=== PATIENT | female | born 1990 | race Caucasian/White ===

== ENCOUNTER 2018-07-21 14:16 | Outpatient (REF) | payer OTHER, SELFPAY ==
--- NOTE | 2018-07-21 13:30 | PAPFT_PTH ---
PATIENT: Catrina Flaherty LOC: [facility] U#:[id number] AGE/SX: 27/F ROOM: RE07/21/[address]: SAMMIE Caldwell : 1990 BED: DIS: 07/21/2018 SPEC #: [id number] RECD: 07/21/18 18:07 STATUS: SUKHDEV REEmmanuelle #: [id number] NATE: 07/21/18 13:[address]: Virginia Hylton DEPT: [facility]LY [facility] Cytology RECD BY: Sparkle Trevizo ENTERED: 07/21/18 18:07 SP TYPE: PAPFT OTHR DR: Genet Sorensen Tissues: 1 - CX/ENDOCX FOR PAP SMEARS Procedures: PAP THIN PREP/UVM Screening Comments: [id number]
== END 2018-07-21 14:36 ==
LOC: LBN 14:16
PROVIDERS: PCP Nurse Practitioner Family; Visit Provider Nurse Practitioner Family
DX: Z12.4 Encounter for screening for malignant neoplasm of cervix (principal)
CPT/HCPCS: 88142

== ENCOUNTER 2018-10-28 11:56 | Outpatient (CLI) | payer OTHER, SELFPAY ==
[2018-10-28 12:28] LABS: Abs Immature Grans 0.01 k/cumm (0.0-0.09); Absolute Basophil Count 0.04 k/cumm (0.0-0.2); Absolute Eosinophil Count 0.25 k/cumm (0.0-0.7); Absolute Lymphocyte Count 2.99 k/cumm (1.2-3.4); Absolute Monocyte Count 1.11 k/cumm (0.11-0.7); Absolute Neutrophil Count 7.39 k/cumm (1.2-6.7); Basophils % 0.3; Eosinophils % 2.1; HCT 39.7 % (36.0-46.0); HGB 13.7 g/dL (12.0-15.5); Immature Grans % 0.1; Lymphocytes % 25.4; Mean Corp. HGB Concentration 34.5 g/dL (32.0-36.0); Mean Corpuscular Hemoglobin 31.6 pg (27.0-33.0); Mean Corpuscular Volume 91.7 fL (80-95); Mean Platelet Volume 9.7 fL (8.0-11.0); Monocytes % 9.4; Neutrophils % 62.7; Platelet Count 326 x1000/uL (130-400); RBC 4.33 m/cumm (4.00-5.20); RBC Distribution Width 12.2 % (11.7-14.6); White Blood Cell Count 11.79 k/cumm (4.4-10.8)
[2018-10-29 11:11] LABS: Rubella IgG Ab (UVM) Positive; Varicella IgG Antibody Positive
[2018-10-29 11:14] LABS: Syphilis Serology (RPR) Negative (Negative)
[2018-10-29 11:19] LABS: Hepatitis B Surface Ag Negative (NEGAT); Hepatitis C Ab w Rflx HCV PCR Negative (NEGAT)
[2018-10-29 11:30] LABS: HIV-1/2 Ag & Ab Screen Negative (NEGAT)
== END 2018-10-28 12:16 ==
PROVIDERS: PCP Nurse Practitioner Family; Visit Provider Advanced Practice Midwife
DX: Z34.91 Encounter for supervision of normal pregnancy, unspecified, first trimester (principal); Z01.84 Encounter for antibody response examination; Z11.4 Encounter for screening for human immunodeficiency virus [HIV]; Z11.59 Encounter for screening for other viral diseases
CPT/HCPCS: 36415; 80055; 86787; 86803; 86850; 86900; 86901; 87340; 87389; 86592; 86762

== ENCOUNTER 2018-10-28 14:26 | Outpatient (REF) | payer OTHER, SELFPAY ==
[2018-10-28 15:12] LABS: *AMPHETAMINES SCREEN URINE Negative (Negative); *BARBITURATES SCREEN URINE Negative (Negative); *BENZODIAZEPINES SCREEN URINE Negative (Negative); Cannabinoids THC Negative (Negative); Cocaine Screen,Urine Negative (Negative); METHADONE URINE SCREEN Negative (Negative); OPIATES URINE SCREEN Negative (Negative)
[2018-10-28 15:13] LABS: Tricyclic Antidepressants Negative (Negative)
[2018-11-01 07:09] LABS: Buprenorphine Negative; Norbuprenorphine Negative
== END 2018-10-28 14:46 ==
LOC: LBN 14:26
PROVIDERS: PCP Nurse Practitioner Family; Visit Provider Advanced Practice Midwife
DX: Z34.91 Encounter for supervision of normal pregnancy, unspecified, first trimester (principal)
CPT/HCPCS: 80307; 87086

== ENCOUNTER 2018-11-25 12:55 | Outpatient (REF) | payer OTHER, SELFPAY ==
[2018-11-26 14:32] LABS: Chlamydia Result Negative; GC Result Negative; Specimen Description URINE
== END 2018-11-25 13:15 ==
LOC: LBN 12:55
PROVIDERS: PCP Nurse Practitioner Family; Visit Provider Advanced Practice Midwife
DX: Z34.91 Encounter for supervision of normal pregnancy, unspecified, first trimester (principal); Z11.3 Encounter for screening for infections with a predominantly sexual mode of transmission
CPT/HCPCS: 87491; 87591

== ENCOUNTER 2018-12-22 01:23 | Outpatient (CLI) | payer OTHER, SELFPAY ==
--- NOTE | 2018-12-22 08:37 | DI.US_ITS ---
SYMPTOMS/DIAGNOSIS: SURVEY, Z34.90, ROUTINE CARE OB ULTRASOUND: Routine examination was performed. There is a single living intrauterine gestation. Estimated sonographic age is 18 weeks 3 days. No or placental abnormalities were identified. The heart rate is 149 bpm. The fetus was in the cephalic presentation. The amniotic fluid is within normal limits visually. The placenta is posterior without evidence of previa. IMPRESSION: Single living intrauterine gestation. Estimated sonographic age is 18 weeks 3 days. Many abnormalities cannot be diagnosed. A normal exam does not exclude a congenital anomaly. Radiology No. [id number] LMP: Exam Date: 12/22/18 [facility] wks days on EDC ([facility]) 05/25/19 Confirmed: HISTORY: survey PREDICTED GESTATIONAL AGE NUMBER 18 weeks with a range of 17 weekS to 19 weeks. 1 Determined by 1STUS X LMP___HISTORY Info. pertaining to fetus # PLACENTA PRESENTATION Grade I Cephalic X Anterior___Posterior X Breech____ Right Left Transverse(head right___ Fundal___Low-lying___Previa___ Transverse(head left___ Varying BIOMETRY AMNIOTIC FLUID BPD: 41 mm 18+3 weeks Normal HC: 152 mm 18+1 weeks AC: 128 mm 18+2 weeks FL: 28 mm 18+4 weeks AMNIOTIC FLUID INDEX >26 WK CRL: mm weeks Cisterna Magna: 2.4 mm CI: 82.6 RUQ: LUQ Cerebellum: 1.83 cm EFW: 239 grams Percentile 71% RLQ: LLQ Total: cms Composite AGE= 18+3 wks EDC by US 05/22/19 BIOPHYSICAL PROFILE ANATOMY IDENTIFIED SCORE 0/2 Heart: 4-Chamber X Rate: 149 BPM LVOT: X RVOT: X Amniotic Fluid(>2cms)____ Stomach: X Kidneys: X Respirations (>30 secs) Bladder: X Post. Fossa: X Body Flex/Extension 3 vessel cord: X Ventricles: X cord insertion: X Lips: X Extremity Flex/Extension spinal morphology: XNose: X Total Score= Palate: X NS=not seen
== END 2018-12-22 01:43 ==
PROVIDERS: PCP Nurse Practitioner Family; Visit Provider Advanced Practice Midwife
DX: Z34.92 Encounter for supervision of normal pregnancy, unspecified, second trimester (principal)
CPT/HCPCS: 76805

== ENCOUNTER 2019-03-02 01:07 | Outpatient (CLI) | payer OTHER, SELFPAY ==
[2019-03-02 11:22] LABS: Glucose,1 Hr (Glucola) 134 mg/dL (80-140)
[2019-03-02 11:27] LABS: HCT 36.2 % (36.0-46.0); HGB 12.1 g/dL (12.0-15.5); Mean Corp. HGB Concentration 33.4 g/dL (32.0-36.0); Mean Corpuscular Hemoglobin 31.1 pg (27.0-33.0); Mean Corpuscular Volume 93.1 fL (80-95); Mean Platelet Volume 10.3 fL (8.0-11.0); Platelet Count 289 x1000/uL (130-400); RBC 3.89 m/cumm (4.00-5.20); White Blood Cell Count 11.34 k/cumm (4.4-10.8)
== END 2019-03-02 01:27 ==
PROVIDERS: PCP Nurse Practitioner Family; Visit Provider Advanced Practice Midwife
DX: Z34.93 Encounter for supervision of normal pregnancy, unspecified, third trimester (principal)
CPT/HCPCS: 36415; 82950; 85027

== ENCOUNTER 2019-04-27 11:39 | Outpatient (REF) | payer OTHER, SELFPAY ==
[2019-04-27 13:12] LABS: *AMPHETAMINES SCREEN URINE Negative (Negative); *BARBITURATES SCREEN URINE Negative (Negative); *BENZODIAZEPINES SCREEN URINE Negative (Negative); Cannabinoids THC Negative (Negative); Cocaine Screen,Urine Negative (Negative); METHADONE URINE SCREEN Negative (Negative); OPIATES URINE SCREEN Negative (Negative)
[2019-04-27 13:16] LABS: Tricyclic Antidepressants Negative (Negative)
== END 2019-04-27 11:59 ==
LOC: LBN 11:39
PROVIDERS: PCP Nurse Practitioner Family; Visit Provider Advanced Practice Midwife
DX: Z34.93 Encounter for supervision of normal pregnancy, unspecified, third trimester (principal); Z36.85 Encounter for antenatal screening for Streptococcus B
CPT/HCPCS: 80307; 87081

== ENCOUNTER 2019-05-09 11:45 | Outpatient (CLI) | payer OTHER, SELFPAY | END 2019-05-09 12:05 | PROVIDERS: PCP Nurse Practitioner Family; Visit Provider Advanced Practice Midwife | DX: O46.93 Antepartum hemorrhage, unspecified, third trimester (principal); Z3A.39 39 weeks gestation of pregnancy | CPT/HCPCS: 59025 ==

== ENCOUNTER 2019-05-18 10:48 | Outpatient (CLI) | payer OTHER, SELFPAY ==
[2019-05-18 11:45] LABS: HCT 34.6 % (36.0-46.0); HGB 11.5 g/dL (12.0-15.5); Mean Corp. HGB Concentration 33.2 g/dL (32.0-36.0); Mean Corpuscular Hemoglobin 29.9 pg (27.0-33.0); Mean Corpuscular Volume 90.1 fL (80-95); Mean Platelet Volume 10.4 fL (8.0-11.0); Platelet Count 278 x1000/uL (130-400); RBC 3.84 m/cumm (4.00-5.20); RBC Distribution Width 13.5 % (11.7-14.6); White Blood Cell Count 12.77 k/cumm (4.4-10.8)
== END 2019-05-18 11:08 ==
PROVIDERS: PCP Nurse Practitioner Family; Visit Provider Obstetrics & Gynecology
DX: O34.211 Maternal care for low transverse scar from previous cesarean delivery (principal); Z98.891 History of uterine scar from previous surgery; Z01.812 Encounter for preprocedural laboratory examination; Z01.818 Encounter for other preprocedural examination
CPT/HCPCS: 36415; 85027; 86850; 86900; 86901

== ENCOUNTER 2019-05-19 06:03 | Inpatient (IN) | payer OTHER, SELFPAY ==
--- NOTE | 2019-05-14 09:47 | HPE_ITS ---
Date of service: 05/19/19 Time of Service: 06:25 Assessment and Plan (1) Previous section: Current visit: No Status: Chronic (2) : Current visit: No Status: Acute Plan RCS/PPTL R/B/A have been discussed all questions asked and answered discussed risk regret,failure, and/or ectopic she states an understanding of these risk consents signed History of Present Illness Chief Complaint: RCS/PPTL Narrative: 28 yo 39 weeks presents for RCS/PPTL Review of Systems Review of Systems All systems reviewed & are unremarkable except as noted in HPI and below PFSH Medical History Anxiety (Acute) Personal history of cervical dysplasia (Chronic 05/28/13) Positive test (Acute) Tobacco use (Resolved 06/25/17) Surgical History section (11/29/15) Previous section (Chronic) Social History Smoking/Tobacco Use Status: Former Tobacco Use Alcohol Intake: former Details: Rarely Drug use: Never Substance use type: former substance user Seatbelt use: always Do you feel safe in your relationship?: Yes History History 3 Para 1 Hx # Term Pregnancies 1 Multiple births 0 Hx # Pregnancies 0 Ectopic pregnancies 0 AB induced 1 Hx Number of Living Children 1 AB spontaneous 0 Past Pregnancies Del. Date GA/Weeks # Outcome Route Wgt Sex Labor Lgth Anesthes ia Location [facility] 11/30/15 41 No Successful 4.082 kg Female 22 hrs regional [facility] Delivery Date: 11/30/15 On 10/28/18 @ 11:02 Annette Rushing long labor, OP position, pushed for over 2 hours Meds Home Medications Medication Instructions Recorded Confirmed Type Benedryl PRN 05/28/13 05/14/19 History Zyrtec 08/18/15 05/14/19 History acetaminophen [Tylenol Extra 1,000 mg PO PRN PRN 07/25/17 05/14/19 History Strength] prenat.vits,vanessa,mow-hnuj-bxbcf 1 tab PO DAILY 10/16/18 05/14/19 History magnesium 200 mg tablet 200 mg PO DAILY 12/22/18 05/14/19 History riboflavin (vitamin B2) 100 mg 100 mg PO DAILY 12/22/18 05/14/19 History tablet kgbcijgdlu-txhxwpwfcxngi-mtvitxvr 1 cap PO .COMPLEX PRN #20 cap 01/19/19 05/14/19 Rx 50 mg-300 mg-40 mg capsule Allergies Allergy/AdvReac Type Severity Reaction Status Date / Time ibuprofen Allergy Severe Verified 05/14/19 09:10 codeine [Codeine] Allergy Intermediate RASH Verified 05/14/19 09:10 guaifenesin [From Robitussin] Allergy Intermediate RASH Verified 05/14/19 09:10 animal dander Allergy Verified 05/14/19 09:10 house dust mite Allergy Verified 05/14/19 09:10 Anesthesia Allergy Severe Swelling/Ed Uncoded 05/14/19 09:10 marcos Exam Narrative Exam Narrative: pleasant cooperative Resp Effort & Inspection: normal respiratory effort Auscultation: clear to auscultation bilaterally Cardio Rate: regular rate Rhythm: regular rhythm Heart Sounds: S1 normal and S2 normal General: other (gravid uterus non tender EFW 9#)
[2019-05-19 06:25] VITALS: BP 117/74; PULSE 83; RESP 18; TEMP 36.6; O2SAT 97
[2019-05-19 06:26] VITALS: BP 117/74; PULSE 83; RESP 18; TEMP 36.6; O2SAT 97
[2019-05-19] MEDS: Lactated Ringers 1,000 ML 125 ML IV ×3 (06:44→20:05)
[2019-05-19] MEDS: ceFAZolin 2 GM/50 ML BAG IVPB (07:45)
--- NOTE | 2019-05-19 08:18 | FALL_PTH ---
PATIENT: Catrina Flaherty LOC: [facility] U#:[id number] AGE/SX: 28/F ROOM: OBS.305 RE05/19/[address]: Shirley Vela MD : 1990 BED: A DIS: 05/22/2019 SPEC #: [id number] RECD: 05/19/19 12:57 STATUS: SUKHDEV REEmmanuelle #: [id number] NATE: 05/19/19 08:[address]: Shirley Vela DEPT: Surgical Specimen RECD BY: Sparkle Trevizo ENTERED: 05/19/19 12:58 SP TYPE: Fall OTHR DR: Genet Sorensen Tissues: 1 - FALLOPIAN TUBE (STERILIZATION) 2 - FALLOPIAN TUBE (STERILIZATION) Procedures: GROSS AND MICRO LEVEL 2 Comments: [id number]
[2019-05-19] MEDS: Bupivacaine LIPOSOME/PF 133 MG/10 ML VIAL IJ (08:30)
[2019-05-19] MEDS: Ondansetron 4 MG/2 ML VIAL 8 MG IVP (09:44)
[2019-05-19] MEDS: HYDROmorphone 2 MG/ML VIAL 1 MG IVP ×2 (09:46→11:12)
--- NOTE | 2019-05-19 11:24 | ROE_ITS ---
REPORT OF OPERATIVE PROCEDURE DATE OF PROCEDURE May 19, 2019 PREOPERATIVE DIAGNOSES Request repeat section, desires permanent sterilization. POSTOPERATIVE DIAGNOSES Request repeat section, desires permanent sterilization. PROCEDURE Repeat caesarean section via low transverse incision, bilateral tubal ligation. SURGEON Shirley Vela M.D. TRANSMISSION SPECIALIST Tigre Milan M.D. ANESTHESIA Spinal. COMPLICATIONS None. ESTIMATED BLOOD LOSS 800 cc FLUIDS 1000 cc LR SPECIMENS Bilateral segments of fallopian tube. FINDINGS Viable female infant, 8 pounds 11 ounces with Apgars 8 and 9. Normal uterus, ovaries, bilaterally ligated tubes at the end of the procedure. PROCEDURE DESCRIPTION The patient was taken to the Operating Room, where she was properly identified. She was then given sp inal anesthesia without difficulty. She was then placed in a dorsally supine position on the Operatin g Table with a left lateral tilt. She was then prepped and draped in a normal sterile fashion after p lacement of the Millan catheter and SCDs boots were on. A formal timeout procedure was then performed confirming the patient, procedure and desire for bilateral tubal ligation. After establishing adequate spinal anesthesia, a Pfannenstiel incision was made approximately 2 cm ab ove the symphysis pubis, along the old Pfannenstiel scar. This was carried down to the underlying fas kristina. The fascia was nicked in the midline and then extended sharply bilaterally with the Watkins scissor s. The inferior fascia was then grasped bilaterally with the Chacho clamps, tented up and the rectus muscle was dissected off sharply. Attention was then turned to the superior aspect, and again, in a s imilar fashion was grasped bilaterally with the Chacho clamps, tented up and the rectus muscle was di ssected off sharply. The rectus muscle was in the midline. The peritoneum was entered. This was extended superiorly, then inferiorly with good visualization of the bladder. The bladder blade w as then positioned. The vesicouterine peritoneum was grasped with a Pick-Up, tented up and entered s harply. The bladder flap was created both sharply and digitally. The bladder blade was re-positioned. The lower uterine segment was transversely incised to the underlying uterine cavity. The uterine in cision was extended manually. The membranes were ruptured for clear fluid and the 's head was d elivered atraumatically without nuchal cord. Shoulder and body followed with ease. The cord was clamp ed x2, cut and the was handed off to the waiting Marketing Copywriter. The uterus exteriorized and cleared of all clots and debris. The uterus was closed with #0-Vicryl in a running locked fashion, and a second imbricating layer was used to achieve hemostasis. The uterus w as returned to the abdomen and the uterus was rotated to visualize the right fallopian tube, which wa s grasped circumferentially with the Hancock clamp. Tied x2 and the interval segment excised. Hemosta sis was confirmed. Attention was turned to the opposite fallopian tube and again, in a similar fashion, it was grasped c ircumferentially with the Hancock clamp, tied x2 and the interval segment excised. Hemostasis again w as confirmed. The incision was re-inspected and found to be hemostatic. The peritoneum was closed with #2-0 Vicryl in a running fashion. The muscle and subfascial layer were inspected and found to be hemostatic. The fascia was closed with a running single suture of #0-Vicry l. The subcuticular layer was irrigated. The subcuticular layer was closed with #3-0 Plain, and the s kin was closed with #4-0 Vicryl on a Chele needle in a subcuticular fashion. Sponge, lap, needle and instrument counts were correct x2. The patient was taken to the Recovery Room in stable condition. [facility]
[2019-05-19] MEDS: HYDROmorphone 2 MG TAB PO ×4 (12:29→22:00)
[2019-05-19] MEDS: ACETAMINOPHEN 1,000 MG/100 ML BTL 400 MG IVPB ×2 (14:55→20:04)
[2019-05-20] MEDS: HYDROmorphone 2 MG TAB PO ×10 (00:54→22:22)
[2019-05-20] MEDS: Lactated Ringers 1,000 ML 120 ML IV (03:19)
[2019-05-20 07:24] LABS: HCT 33.6 % (36.0-46.0); Mean Corp. HGB Concentration 32.7 g/dL (32.0-36.0); Mean Corpuscular Hemoglobin 29.5 pg (27.0-33.0); Mean Corpuscular Volume 90.1 fL (80-95); Mean Platelet Volume 10.4 fL (8.0-11.0); Platelet Count 237 x1000/uL (130-400); RBC 3.73 m/cumm (4.00-5.20); RBC Distribution Width 13.7 % (11.7-14.6); White Blood Cell Count 15.05 k/cumm (4.4-10.8)
[2019-05-20] MEDS: Docusate Sodium 100 MG CAP PO ×2 (09:20→16:16)
[2019-05-20] MEDS: ACETAMINOPHEN 1,000 MG/100 ML BTL 400 MG IVPB (09:21)
[2019-05-20] MEDS: Normal Saline Flush 10 ML SYR IVP (09:22)
[2019-05-20] MEDS: Acetaminophen 325 MG TAB 650 MG PO (19:13)
[2019-05-21] MEDS: HYDROmorphone 2 MG TAB PO ×7 (00:30→21:34)
[2019-05-21] MEDS: Docusate Sodium 100 MG CAP PO ×2 (08:25→22:15)
[2019-05-21] MEDS: Acetaminophen 325 MG TAB 650 MG PO ×4 (08:25→23:25)
[2019-05-21] MEDS: Milk of Magnesia 30 ML CUP PO (14:49)
[2019-05-22] MEDS: HYDROmorphone 2 MG TAB PO ×3 (01:49→11:21)
[2019-05-22] MEDS: Acetaminophen 325 MG TAB 650 MG PO ×2 (04:46→11:25)
[2019-05-22] MEDS: Docusate Sodium 100 MG CAP PO (07:58)
--- NOTE | 2019-05-22 07:58 | W.PM.PROGNOT ---
Date of Service Date of service: 05/22/19 Time of Service: 07:58 Assessment and Plan (1) S/P section: Current visit: Yes Status: Acute POD 3 s/p RLTCS and BTL. Making satisfactory postoperative progress. Plan for discharge home today. Subjective Interval history since last seen: Doing well. Pain well controlled. Ambulatory. Tolerating regular diet. No nausea or vomiting. Minimal lochia. Exam GI Other: Incision is appropriately tender. C/D/I Objective Objective Clinical Data: Vital Signs Temperature 97.9 F 05/19/19 06:26 Pulse 83 05/19/19 06:26 Pulse Rhythm Regular 05/19/19 06:26 Respiratory Rate 18 05/19/19 06:26 Blood Pressure 117/74 05/19/19 06:26 Pulse Oximetry 97 05/19/19 06:26 Oxygen Delivery Method Room Air 05/19/19 06:26 Oxygen Flow Rate 0 05/19/19 06:26 Pain Level 5 05/22/19 04:46 Comment 05/19/19 06:26 Laboratory Results WBC 15.05 k/cumm (4.4-10.8) H 05/20/19 07:05 RBC 3.73 m/cumm (4.00-5.20) L 05/20/19 07:05 Hgb 11.0 g/dL (12.0-15.5) L 05/20/19 07:05 Hct 33.6 % (36.0-46.0) L 05/20/19 07:05 MCV 90.1 fL (80-95) 05/20/19 07:05 MCH 29.5 pg (27.0-33.0) 05/20/19 07:05 MCHC 32.7 g/dL (32.0-36.0) 05/20/19 07:05 RDW 13.7 % (11.7-14.6) 05/20/19 07:05 Plt Count 237 x1000/uL (130-400) 05/20/19 07:05 MPV 10.4 fL (8.0-11.0) 05/20/19 07:05
--- NOTE | 2019-05-22 08:03 | W.PM.DSUDISC ---
Discharge Plan Disposition Patient Disposition: HOME Condition: Good Discharge Details Admit Date/Time: 05/19/19 06:03 Admit Provider: Shirley Vela Attending Provider: Shirley Vela Primary Care Provider: Genet Sorensen Hospital Course Hospital Course: The patient was admitted for repeat section and BTL which was performed on HD 1. Postoperatively the patient did well. She met all postoperative milestones and was felt suitable for discharge on POD 3 Home Meds and New Rx's Prescriptions: New hydromorphone 2 mg Tablet 2 mg PO Q6H PRN PRNQty: 10 RF: 0 Continued prenat.vits,vanessa,nre-rlwj-lhldc tablet 1 tab PO DAILY RF: 0 toajxbyebj-bqftfxtfvlcjj-trmp [Fioricet] 50-300-40 mg capsule 1 cap PO .COMPLEX PRN (Reason: pain) Qty: 20 RF: 0 magnesium 200 mg tablet 200 mg PO DAILY RF: 0 riboflavin (vitamin B2) 100 mg tablet 100 mg PO DAILY RF: 0 benedryl 2 tab PO PRN RF: 0 zyrtec RF: 0 acetaminophen [Tylenol Extra Strength] 500 MG tablet 1,000 mg PO PRN PRNRF: 0 Discharge Instructions Activity:: Activity as Tolerated Equipment/Supplies:: No Equipment Needed Diet:: As Tolerated Discharge Orders Discharge Orders: Discharge Order (Routine); Ordered 05/22/19 Ordered By: Tigre Milan DS: Diagnosis Discharge Diagnosis (1) S/P section: Status: Acute
== END 2019-05-22 12:50 | disposition home or self-care (01) | DRG 784 ==
LOC: PDS 06:04 → OBS 10:51 → PDS 11:05 → OBS 11:05
PROVIDERS: Admitting Provider Obstetrics & Gynecology; PCP Nurse Practitioner Family; Visit Provider Obstetrics & Gynecology
PROC: 10D00Z1 Extraction of Products of Conception, Low, Open Approach (ICD-10-PCS; CPT 59514; principal; 2019-05-19 07:30)
PROC: 10D00Z1 Extraction of Products of Conception, Low, Open Approach (ICD-10-PCS; CPT 58605; 2019-05-19 07:30)
DX: O34.211 Maternal care for low transverse scar from previous cesarean delivery (principal); O99.43 Diseases of the circulatory system complicating the puerperium; Z37.0 Single live birth; Z3A.39 39 weeks gestation of pregnancy; Z88.8 Allergy status to other drugs, medicaments and biological substances; Z30.2 Encounter for sterilization; R00.0 Tachycardia, unspecified
CPT/HCPCS: 59514; 58611; 36415; 85027; 99233; NC; 88302; J0131; J0690; J2370; J2405; J3010

== ENCOUNTER 2019-06-10 20:26 | Observation (INO) | payer OTHER, MEDICAID, SELFPAY ==
[2019-06-10] VITALS (21 sets, daily range): BP systolic 101–113; BP diastolic 63–76; PULSE 80–99; RESP 11–24; TEMP 37–37.4; O2SAT 96–98
--- NOTE | 2019-06-10 20:36 | ED.GENADUL_ITS ---
Discharge Plan Disposition Patient Disposition: [facility] INPATIENT Condition: Good Discharge Details Chief Complaint: Headache Clinical Impression: Eye pain, Headache, Hand tingling Admit Date/Time: 06/10/19 22:23 Admit Provider: Tigre Milan Attending Provider: Tigre Milan Primary Care Provider: Genet Sorensen ED Provider: Quinn Rosenthal Medical Decision Making Patient is 20 days presenting with painful eye movement as opposed to true headache. This does not appear to be a spinal headache. Does not appear to be eclampsia. Her blood pressure is normal. She has no right upper quadrant pain, nausea or vomiting. She has left hand tingling but otherwise has a nonfocal neurologic exam. Her funduscopic exam appears normal to me. Her visual acuity is normal. This is not anything like her typical migraines. She does have a history of sinus disease but does not think she had any change in the symptoms. She is not really describing headache per se. Elected to place an IV and check laboratory studies though I do not think this is eclampsia. I will obtain imaging of her head and sinuses. This does not strike me as intracranial hemorrhage. This seems to be more related to a possible eye issue. Optic neuritis should be unilateral and should have visual change which she is not describing but it certainly does cause eye pain. She does not have extraocular muscle weakness. Potentially some eye muscle inflamma tion could be causing this. Laboratory studies are unremarkable. Urine is negative. Liver function normal. Platelets normal. Vital signs remain normal. CT scan is normal per preliminary radiology read. At this point still have to consider other causes of eye movement pain. She is recently and she has other neurologic complaints though it is only paresthesias in the left hand. She probably will benefit from MRI of the brain and orbits to rule out significant pathology such as multiple sclerosis, neuritis, eye muscle myopathy. I doubt this is arteritis but have added a sed rate. I have discussed the case with Dr. Milan from OB. She had called him prior to coming in. We will admit to observation status to labor and delivery so that she may keep her baby and continue breast-feeding. Plan MRI in the morning emergently and obtain neurology consult with Dr. Rodgers. Patient is agreeable with plan. Medical Records Medical records reviewed: Yes I reviewed the patient's medical records. Lab Data Lab results reviewed: Yes I reviewed the patient's lab results. HPI General Mode of arrival: ambulatory . Date/Time Provider Initiated Documentation: 06/10/19 20:35 . Limitations to Documentation: no limitations . Information obtained by: patient, RN notes reviewed and old records reviewed . HPI Narrative: Patient presents with 3 days of severe eye pain with eye movement. This has been more or less constant. She has noticed some cloudiness to her vision but no actual change in vision. She does not describe photosensitivity. She does not really describe headache. If she is looking straight ahead and not moving her eyes her pain is significantly better. As soon as she begins moving her eyes around especially upward she develops severe pain. She does have a history of migraines. This is nothing like her previous typical migraine headaches. She has noticed intermittent tingling in the left hand involving the palmar aspect and into the fingers. She has not noticed any other neurologic symptoms. She has no nausea, vomiting or abdominal pain. She is 20 days from a . She did have a spinal for this. She does not notice change in pain or headache with recumbent versus standing. Related Data Home Medications Medication Instructions Recorded Confirmed acetaminophen [Tylenol Extra 1,000 mg PO PRN PRN 07/25/17 06/10/19 Strength] prenat.vits,vanessa,grz-cfnu-siixz 1 tab PO DAILY 10/16/18 06/10/19 magnesium 200 mg tablet 200 mg PO DAILY 12/22/18 06/10/19 riboflavin (vitamin B2) 100 mg 100 mg PO DAILY 12/22/18 06/10/19 tablet wwzspasooq-udaddzigntzbv-esopwaso 1 cap PO .COMPLEX PRN #20 cap 01/19/19 06/10/19 50 mg-300 mg-40 mg capsule hydromorphone 2 mg PO Q6H PRN PRN #10 tab 05/22/19 06/10/19 cetirizine [Zyrtec] 10 mg PO DAILY 06/10/19 06/10/19 Previous Rx's Medication Instructions Recorded yvmpgjnnbm-fshyhfyxgyqol-fvmpgtvd 1 cap PO .COMPLEX PRN #20 cap 01/19/19 50 mg-300 mg-40 mg capsule hydromorphone 2 mg PO Q6H PRN PRN #10 tab 05/22/19 Allergies Allergy/AdvReac Type Severity Reaction Status Date / Time NSAIDS (Non-Steroidal Allergy Severe anyphylaxis Verified 06/10/19 23:00 Anti-Inflamma codeine [Codeine] Allergy Intermediate RASH Verified 06/10/19 20:38 guaifenesin [From Robitussin] Allergy Intermediate RASH Verified 06/10/19 20:38 animal dander Allergy Verified 06/10/19 20:38 house dust mite Allergy Verified 06/10/19 20:38 Anesthesia Allergy Severe Swelling/Ed Uncoded 06/10/19 20:38 marcos Review of Systems Review of Systems 07/26 Review of Systems completed and is negative except as stated above in HPI (Systems reviewed: Const, Eyes, ENT, Resp, CV, GI, , MSK, Skin, Neuro) PFSH Medical History Anxiety (Chronic) Pt reports intense anxiety at times focused around her daughter's safety and well-being and becomes more intense when she is from her daughter. At times, symptoms of panic. Migraine (Chronic) Personal history of cervical dysplasia (Chronic 05/28/13) Surgical History section (11/29/15) PCD for arrest of dilation. Shankar Chambers 9lb. ROSALINDA/FABIAN. Social History Smoking/Tobacco Use Status: Former Tobacco Use Alcohol Intake: former Details: Rarely Drug use: Never Substance use type: former substance user Seatbelt use: always Do you feel safe in your relationship?: Yes History History 3 Para 2 Hx # Term Pregnancies 2 Multiple births 0 Hx # Pregnancies 0 Ectopic pregnancies 0 AB induced 1 Hx Number of Living Children 2 AB spontaneous 0 Past Pregnancies Del. Date GA/Weeks # Outcome Route Wgt Sex Labor Lgth Anesthes ia Location Prov Complic 11/30/15 41 No Successful 4.082 kg Female 22 hrs regional [facility] Delivery Date: 11/30/15 On 10/28/18 @ 11:02 Annette Rushing long labor, OP position, pushed for over 2 hours Exam Narrative Exam Narrative: Vitals: Afebrile with normal vital signs and normal blood pressure. Const: WDWN female in NAD. HEENT: NC/AT. Normal facial exam. No sinus tenderness. Eyes: Normal conjunctiva and sclera. PERRLA and EOMI but severe pain with EOMI. Visual guzman in tact to confrontation. VA 20/20 left and right. Funduscopic exam is normal with sharp disc bilaterally. Neck: Supple. Trachea midline. No meningeal signs. Lungs: Normal respiratory effort. Lungs are clear. Cor: RRR without murmur/gallop. GI: Soft. NT/ND. No guarding or rebound. Neuro: A+O x 3. CN II - XII grossly in tact. Normal mentation, speech, gait, strength, sensation, cerebellar testing. Subjective tingling in the palmar aspect of the left hand. Ext: No C/C/E. No deformity or tenderness. Skin: Warm and dry without rash.
[2019-06-10 21:16] LABS: Abs Immature Grans 0.01 k/cumm (0.0-0.09); Absolute Basophil Count 0.02 k/cumm (0.0-0.2); Absolute Eosinophil Count 0.11 k/cumm (0.0-0.7); Absolute Lymphocyte Count 1.58 k/cumm (1.2-3.4); Absolute Monocyte Count 1.17 k/cumm (0.11-0.7); Absolute Neutrophil Count 4.31 k/cumm (1.2-6.7); Basophils % 0.3; Eosinophils % 1.5; HGB 13.2 g/dL (12.0-15.5); Immature Grans % 0.1; Lymphocytes % 21.9; Mean Corpuscular Hemoglobin 29.8 pg (27.0-33.0); Mean Corpuscular Volume 90.3 fL (80-95); Mean Platelet Volume 10.3 fL (8.0-11.0); Monocytes % 16.3; Neutrophils % 59.9; Platelet Count 291 x1000/uL (130-400); RBC 4.43 m/cumm (4.00-5.20); RBC Distribution Width 13.8 % (11.7-14.6)
[2019-06-10 21:30] LABS: ALT 28 U/L (14-59); AST 14 U/L (15-37); Albumin 3.5 g/dL (3.4-5.0); Alkaline Phosphatase 95 U/L (46-116); Anion Gap 14.1 mmol/L (3-11); BUN 7 mg/dL (7-18); Bilirubin, Total 0.2 mg/dL (0.2-1.0); CO2 21.9 mmol/L (21.0-32.0); CREATININE 0.83 mg/dL (0.55-1.02); Calcium 8.5 mg/dL (8.5-10.1); Chloride 104 mmol/L (98-107); Glucose 115 mg/dL (70-100); Sodium 140 mmol/L (136-145); Total Protein 7.3 g/dL (6.4-8.2)
[2019-06-10 21:32] LABS: Potassium 2.9 mmol/L (3.5-5.1)
--- NOTE | 2019-06-10 21:32 | DI.CT_ITS ---
SYMPTOM/DIAGNOSIS: FRONTAL HEADACHE NONCONTRAST HEAD CT: There are no prior comparison exams. No intracranial hemorrhage, mass or infarct is seen. The ventricles are normal in size. There is no evidence of skull fracture, sinus or mastoid opacification. IMPRESSION: Negative head CT
[2019-06-10 21:39] LABS: Bilirubin Negative (Negative); Blood Negative (Negative); Clarity Clear (Clear); Glucose Negative (Negative); Ketones Negative (Negative); Leukocyte Esterase Negative (Negative); Nitrite Negative (Negative); Urobilinogen 0.2 EU/dL (Up TO 0.2)
--- NOTE | 2019-06-10 21:41 | DI.VRAD_ITS ---
EXAM: CT Head Without Contrast EXAM DATE/TIME: 06/10/2019 8:59 PM CLINICAL HISTORY: 28 years old, female; Pain; Headache; Migraine; Aura effect not specified; Additional info: Migraine x3 days TECHNIQUE: Imaging protocol: Computed tomography of the head without contrast. Radiation optimization: All CT scans at this facility use at least one of these dose optimization techniques: automated exposure control; mA and/or kV adjustment per patient size (includes targeted exams where dose is matched to clinical indication); or iterative reconstruction. COMPARISON: No relevant prior studies available. FINDINGS: Brain: No extra-axial fluid collections. No evidence of acute intracranial hemorrhage. Smith-white differentiation is well maintained. No evidence of acute or subacute intracranial ischemia/infarct. No intracranial mass lesions. Midline shift: No midline shift or herniation. Ventricles: Ventricles normal. Bones/joints: The calvarium and visualized facial bones are intact. Sinuses: Mucosal thickening in the ethmoid air cells suggesting mild chronic sinus inflammatory disease. No fluid levels. The other paranasal sinuses are clear. Mastoid air cells: Visualized mastoid air cells are clear. Orbits: Orbital contents demonstrate no evidence of acute abnormality. Soft tissues: The scalp and visualized soft tissues demonstrate no acute abnormality. Vasculature: The visualized major intracranial arterial segments demonstrate no gross abnormality by noncontrast CT. No asymmetric vascular hyperdensities are identified. Other findings: The IACs are grossly normal. The sella is grossly normal. IMPRESSION: 1. No acute intracranial process. 2. Mucosal thickening in the ethmoid air cells suggesting mild chronic sinus inflammatory disease. No fluid levels. The other paranasal sinuses are clear. Dictated and Authenticated by: Jose Antonio Noel MD. Ordering:KADEEM Ball MD
[2019-06-10] MEDS: Potassium Chloride 20 MEQ TABCR 40 MEQ PO (22:55)
[2019-06-10 23:34] LABS: ESR 18 mm/hr (0-20)
[2019-06-11 08:32] VITALS: BP 100/66; PULSE 78; RESP 14; TEMP 36.6; O2SAT 98
--- NOTE | 2019-06-11 11:40 | DI.MRI_ITS ---
SYMPTOM/DIAGNOSIS: HEADACHE WITH NEUROLOGIC SIGNS MR-V BRAIN: A 2-D Time of Flight sequence was performed. There is no evidence of sinus thrombosis or occlusion of major venous branches. IMPRESSION: Negative MR-V of the brain.
[2019-06-11] MEDS: Normal Saline Flush 10 ML SYR IVP ×2 (11:49→12:42)
[2019-06-11] MEDS: Gadoterate meglumine 20 ML VIAL 15 ML IVP (11:50)
--- NOTE | 2019-06-11 12:00 | DI.MRI_ITS ---
SYMPTOM/DIAGNOSIS: EYE PAIN WITH MOVEMENT/HEADACHE MR BRAIN AND ORBITS: T2 sagittal, T1, T2, Flair, diffusion and gradient echo axial sequences were performed of the entire brain. Thin T1, FS T2 axial and coronal sequences were performed through the orbits. Post Gadolinium sequences were also performed in the axial and coronal planes. No intracranial hemorrhage, mass or infarct is seen. The ventricles are normal in size. The vascular flow voids appear intact. The globes, extraocular muscles and optic nerves appear symmetric The pituitary is normal in size. There is mild mucosal thickening of the maxillary, ethmoid and sphenoid sinuses. There are no abnormal high signal lesions in the white matter. There are no abnormal enhancing lesions. IMPRESSION: Mild chronic sinus disease. No abnormality seen involving the brain or orbits.
[2019-06-11] MEDS: diphenhydrAMINE 50 MG/ML VIAL 25 MG IVP (12:29)
[2019-06-11] MEDS: Metoclopramide 10 MG/2 ML VIAL IVP (12:34)
[2019-06-11] MEDS: Dexamethasone 10 MG/ML VIAL IVP (12:39)
[2019-06-11] MEDS: MAGNESIUM SULFATE 1 GM/100 ML BAG IVPB (12:42)
[2019-06-11 15:47] VITALS: BP 101/62; PULSE 79; RESP 20; TEMP 36.5; O2SAT 98
[2019-06-11] MEDS: SUMAtriptan 50 MG TAB PO ×2 (17:31→19:20)
--- NOTE | 2019-06-11 18:11 | W.PM.HP.N ---
Date of service: 06/11/19 Time of Service: 08:00 Assessment and Plan (1) Headache: Current visit: Yes Status: Acute (2) Visual changes: Current visit: Yes Status: Acute (3) Paresthesia of hand: Current visit: Yes Status: Acute Will admit to labor and delivery. Consult internal medicine / neurology. Plan for MRI of the head later this morning. History of Present Illness Narrative: 28-year-old G3, P2 now approximately 3 weeks postop repeat presents to the emergency department last evening with complaint of severe headache, visual changes and left hand paresthesia. The patient does have a history of headaches/migraines and has been taking Fioricet for them. She reports that this headache is unlike any that she has had previously and has been intractable. Her headache began approximately 3 to 4 days ago and has gradually worsened. She did have a CT of the head which was essentially negative except for some chronic sinusitis. She is admitted for pain management and will plan for MRI imaging today. Review of Systems Review of Systems All systems reviewed & are unremarkable except as noted in HPI and below PFSH Medical History Anxiety (Chronic) Pt reports intense anxiety at times focused around her daughter's safety and well-being and becomes more intense when she is from her daughter. At times, symptoms of panic. Migraine (Chronic) Personal history of cervical dysplasia (Chronic 05/28/13) Surgical History section (11/29/15) PCD for arrest of dilation. Shankar Chambers 9lb. KK/DD. Social History Smoking/Tobacco Use Status: Former Tobacco Use Alcohol Intake: former Details: Rarely Drug use: Never Substance use type: former substance user Seatbelt use: always Do you feel safe in your relationship?: Yes History History 3 Para 2 Hx # Term Pregnancies 2 Multiple births 0 Hx # Pregnancies 0 Ectopic pregnancies 0 AB induced 1 Hx Number of Living Children 2 AB spontaneous 0 Past Pregnancies Del. Date GA/Weeks # Outcome Route Wgt Sex Labor Lgth Anesthesia Location Prov Complic 11/30/15 41 No Successful 9 lb Female 22 hrs regional [facility] Delivery Date: 11/30/15 On 10/28/18 @ 11:02 Annette Rushing long labor, OP position, pushed for over 2 hours Meds Home Medications Medication Instructions Recorded Confirmed Type acetaminophen [Tylenol Extra 1,000 mg PO PRN PRN 07/25/17 06/10/19 History Strength] prenat.vits,vanessa,apd-mmpe-dthqm 1 tab PO DAILY 10/16/18 06/10/19 History magnesium 200 mg tablet 200 mg PO DAILY 12/22/18 06/10/19 History riboflavin (vitamin B2) 100 mg 100 mg PO DAILY 12/22/18 06/10/19 History tablet tuzwfqeszs-vrjmxczugkjdh-winyparv 1 cap PO .COMPLEX PRN #20 cap 01/19/19 06/10/19 Rx 50 mg-300 mg-40 mg capsule hydromorphone 2 mg PO Q6H PRN PRN #10 tab 05/22/19 06/10/19 Rx cetirizine [Zyrtec] 10 mg PO DAILY 06/10/19 06/10/19 History Allergies Allergy/AdvReac Type Severity Reaction Status Date / Time NSAIDS (Non-Steroidal Allergy Severe anyphylaxis Verified 06/10/19 23:00 Anti-Inflamma codeine [Codeine] Allergy Intermediate RASH Verified 06/10/19 20:38 guaifenesin [From Robitussin] Allergy Intermediate RASH Verified 06/10/19 20:38 animal dander Allergy Verified 06/10/19 20:38 house dust mite Allergy Verified 06/10/19 20:38 Anesthesia Allergy Severe Swelling/Ed Uncoded 06/10/19 20:38 marcos Results Labs : 06/10/19 20:58 06/10/19 20:58 Laboratory Results - last 24 hr 06/10/19 06/10/19 06/10/19 20:58 20:58 20:58 WBC 7.20 RBC 4.43 Hgb 13.2 Hct 40.0 MCV 90.3 MCH 29.8 MCHC 33.0 RDW 13.8 Plt Count 291 MPV 10.3 Immature Gran % 0.1 Neutrophils % 59.9 Lymphocytes % 21.9 Monocytes % 16.3 Eosinophils % 1.5 Basophils % 0.3 Absolute Neutrophils 4.31 Absolute Lymphocytes 1.58 Absolute Monocytes 1.17 H Absolute Eosinophils 0.11 Absolute Basophils 0.02 ESR 18 Sodium 140 Potassium 2.9 L* Chloride 104 Carbon Dioxide 21.9 Anion Gap 14.1 H BUN 7 Creatinine 0.83 Estimated GFR/1.73 m2 >= 60.00 Glucose 115 H Calcium 8.5 Total Bilirubin 0.2 AST 14 L ALT 28 Alkaline Phosphatase 95 Total Protein 7.3 Albumin 3.5 Urine Color Urine Clarity Urine pH Ur Specific [place] Urine Protein Urine Ketones Urine Blood Urine Nitrite Urine Bilirubin Urine Urobilinogen Ur Leukocyte Esterase Urine Glucose 06/10/19 21:30 WBC RBC Hgb Hct MCV MCH MCHC RDW Plt Count MPV Immature Gran % Neutrophils % Lymphocytes % Monocytes % Eosinophils % Basophils % Absolute Neutrophils Absolute Lymphocytes Absolute Monocytes Absolute Eosinophils Absolute Basophils ESR Sodium Potassium Chloride Carbon Dioxide Anion Gap BUN Creatinine Estimated GFR/1.73 m2 Glucose Calcium Total Bilirubin AST ALT Alkaline Phosphatase Total Protein Albumin Urine Color Yellow Urine Clarity Clear Urine pH 7.0 Ur Specific [place] 1.010 Urine Protein Negative Urine Ketones Negative Urine Blood Negative Urine Nitrite Negative Urine Bilirubin Negative Urine Urobilinogen 0.2 Ur Leukocyte Esterase Negative Urine Glucose Negative Last Vital Signs Temp 97.7 F 06/11/19 15:47 Pulse 79 06/11/19 15:47 Resp 20 06/11/19 15:47 BP 101/62 06/11/19 15:47 Pulse Ox 98 06/11/19 15:47
--- NOTE | 2019-06-11 18:17 | PGE_ITS ---
Date of Service Date of service: 06/11/19 Time of Service: 18:17 Assessment and Plan (1) Paresthesia of hand: Current visit: Yes Status: Acute (2) Visual changes: Current visit: Yes Status: Acute (3) Headache: Current visit: Yes Status: Acute (4) S/P section: Current visit: No Status: Acute (5) Hypokalemia: Current visit: Yes Status: Acute Because of the patient's negative imaging and clinical improvement today I feel that she is reasonable to go home today. We will provide her K-Dur prior to discharge. She take 1 more K-Dur tomorrow and then have a potassium checked on Friday morning. We will provide her Imitrex also prior to discharge as well as a prescription. This was felt to be safe in breast-feeding and the patient has been counseled as such. She will follow-up with us next week. Subjective Interval history since last seen: The patient feels much better this afternoon. I did consult neurology at [facility] earlier today. She also had a negative MRI/MRV. Per neurology we did give her 1 g of magnesium sulfate, IV Decadron, Reglan and Benadryl. She did display improvement to the day. At this point she rates her headache a 4 out of 10 and desires to go home. The paresthesia in her left hand has completely resolved. Objective Objective Clinical Data: Abnormal lab results 06/10/19 06/10/19 Range/Units 20:58 20:58 Absolute Monocytes 1.17 H (0.11-0.7) k/cumm Potassium 2.9 L* (3.5-5.1) mmol/L Anion Gap 14.1 H (3-11) mmol/L Glucose 115 H (70-100) mg/dL AST 14 L (15-37) U/L Vital Signs Temperature 97.7 F 06/11/19 15:47 Temperature Source Oral 06/11/19 15:47 Pulse 79 06/11/19 15:47 Pulse Rhythm Regular 06/11/19 15:48 Pulse 92 H 06/10/19 22:00 Respiratory Rate 20 06/11/19 15:47 Respiratory Effort 06/11/19 15:48 Respiratory Depth Normal 06/11/19 15:48 Respiratory Pattern Normal 06/11/19 15:48 Blood Pressure 101/62 06/11/19 15:47 Blood Pressure Mean 76 06/10/19 22:01 Blood Pressure Position Sitting 06/10/19 20:33 Pulse Oximetry 98 06/11/19 15:47 Oxygen Delivery Method Room Air 06/11/19 15:47 Oxygen Flow Rate 0 06/11/19 15:47 Pain Level 4 06/11/19 15:47 Intake & Output 06/10/19 06/11/19 06/11/19 23:59 11:59 23:59 Intake Total 100 / 100 Balance 100 / 100 Weight 163 lb 0.016 oz Intake: IV 100 / 100 Other: Urine Appearance Clear Laboratory Results WBC 7.20 k/cumm (4.4-10.8) 06/10/19 20:58 RBC 4.43 m/cumm (4.00-5.20) 06/10/19 20:58 Hgb 13.2 g/dL (12.0-15.5) 06/10/19 20:58 Hct 40.0 % (36.0-46.0) 06/10/19 20:58 MCV 90.3 fL (80-95) 06/10/19 20:58 MCH 29.8 pg (27.0-33.0) 06/10/19 20:58 MCHC 33.0 g/dL (32.0-36.0) 06/10/19 20:58 RDW 13.8 % (11.7-14.6) 06/10/19 20:58 Plt Count 291 x1000/uL (130-400) 06/10/19 20:58 MPV 10.3 fL (8.0-11.0) 06/10/19 20:58 Immature Gran % 0.1 06/10/19 20:58 59.9 06/10/19 20:58 21.9 06/10/19 20:58 16.3 06/10/19 20:58 1.5 06/10/19 20:58 0.3 06/10/19 20:58 Absolute Neutrophils 4.31 k/cumm (1.2-6.7) 06/10/19 20:58 Absolute Lymphocytes 1.58 k/cumm (1.2-3.4) 06/10/19 20:58 Absolute Monocytes 1.17 k/cumm (0.11-0.7) H 06/10/19 20:58 Absolute Eosinophils 0.11 k/cumm (0.0-0.7) 06/10/19 20:58 Absolute Basophils 0.02 k/cumm (0.0-0.2) 06/10/19 20:58 ESR 18 mm/hr (0-20) 06/10/19 20:58 Sodium 140 mmol/L (136-145) 06/10/19 20:58 Potassium 2.9 mmol/L (3.5-5.1) L* 06/10/19 20:58 Chloride 104 mmol/L (98-107) 06/10/19 20:58 Carbon Dioxide 21.9 mmol/L (21.0-32.0) 06/10/19 20:58 14.1 mmol/L (3-11) H 06/10/19 20:58 BUN 7 mg/dL (7-18) 06/10/19 20:58 0.83 mg/dL (0.55-1.02) 06/10/19 20:58 >= 60.00 (mL/min/1.73m2) 06/10/19 20:58 Glucose 115 mg/dL (70-100) H 06/10/19 20:58 Calcium 8.5 mg/dL (8.5-10.1) 06/10/19 20:58 0.2 mg/dL (0.2-1.0) 06/10/19 20:58 AST 14 U/L (15-37) L 06/10/19 20:58 ALT 28 U/L (14-59) 06/10/19 20:58 95 U/L (46-116) 06/10/19 20:58 7.3 g/dL (6.4-8.2) 06/10/19 20:58 3.5 g/dL (3.4-5.0) 06/10/19 20:58 Yellow (Yellow) 06/10/19 21:30 Clear (Clear) 06/10/19 21:30 7.0 (5-8) 06/10/19 21:30 Ur Specific [place] 1.010 (1.005-1.025) 06/10/19 21:30 Negative mg/dL (Negative) 06/10/19 21:30 Negative mg/dL (Negative) 06/10/19 21:30 Negative (Negative) 06/10/19 21:30 Negative (Negative) 06/10/19 21:30 Negative (Negative) 06/10/19 21:30 0.2 EU/dL (Up TO 0.2) 06/10/19 21:30 Ur Leukocyte Esterase Negative (Negative) 06/10/19 21:30 Negative mg/dL (Negative) 06/10/19 21:30
--- NOTE | 2019-06-11 18:24 | PDOC.DSDIS_ITS ---
Discharge Plan Disposition Patient Disposition: HOME Condition: Good Discharge Details Chief Complaint: Headache Clinical Impression: Eye pain, Headache, Hand tingling Reason For Visit: PAINFUL EYE MOVEMENTS/HEADACHE Admit Date/Time: 06/10/19 22:23 Admit Provider: Tigre Milan Attending Provider: Tigre Milan Primary Care Provider: Genet Sorensen ED Provider: Quinn Rosenthal [facility] Course Hospital Course: The patient was admitted with severe headache, left hand paresthesia, and visual changes. I did consult with neurology at [facility]. We obtained an MRI MRV which was negative. She was given IV Decadron, Reglan, Benadryl and Imitrex. She did display improvement through the day. She did have a potassium that returned 2.8 and was given potassium replacement through the day intravenously. She desired discharge home and was given an additional supplement of K-Dur. We will give her 1 more K. Dur tomorrow and then recheck her potassium on Friday. Home Meds and New Rx's Prescriptions: New potassium chloride [Klor-Con M20] 20 mEq Tablet,Er Particles/Crystals See Rx Instructions .ROUTE .COMPLEX Qty: 1 RF: 0 sumatriptan succinate [Imitrex] 50 mg tablet See Rx Instructions .ROUTE .COMPLEX Qty: 7 RF: 0 Continued prenat.vits,vanessa,hyi-xanj-huyxk tablet 1 tab PO DAILY RF: 0 zslrkckefa-dneevtwlclyav-ysvz [Fioricet] 50-300-40 mg capsule 1 cap PO .COMPLEX PRN (Reason: pain) Qty: 20 RF: 0 riboflavin (vitamin B2) 100 mg tablet 100 mg PO DAILY RF: 0 acetaminophen [Tylenol Extra Strength] 500 MG tablet 1,000 mg PO PRN PRNRF: 0 Zyrtec 10 mg Capsule 10 mg PO DAILY RF: 0 Discontinued magnesium 200 mg tablet 200 mg PO DAILY RF: 0 hydromorphone 2 mg Tablet 2 mg PO Q6H PRN PRNQty: 10 RF: 0 Discharge Instructions Activity:: Activity as Tolerated Equipment/Supplies:: No Equipment Needed Diet:: As Tolerated Discharge Orders Discharge Orders: Discharge Order (Routine); Ordered 06/11/19 Ordered By: Tigre Milan DS: Diagnosis Discharge Diagnosis (1) Paresthesia of hand: Status: Acute (2) Visual changes: Status: Acute (3) Headache: Status: Acute (4) S/P section: Status: Acute (5) Hypokalemia: Status: Acute
[2019-06-11] MEDS: Potassium Chloride 20 MEQ TABCR 40 MEQ PO (18:36)
== END 2019-06-11 19:30 | disposition home or self-care (01) ==
LOC: ER 23:00 → OBS 23:04
PROVIDERS: Admitting Provider Obstetrics & Gynecology; Emergency Provider Emergency Medicine; PCP Nurse Practitioner Family; Visit Provider Obstetrics & Gynecology
DX: O90.89 Other complications of the puerperium, not elsewhere classified (principal); R51 Headache; H53.9 Unspecified visual disturbance; R20.2 Paresthesia of skin; Z98.891 History of uterine scar from previous surgery; E87.6 Hypokalemia
CPT/HCPCS: 36415; 70544; 70553; 80053; 85652; 96360; 96361; 96365; 99223; 99233; 99285; 70450; 70543; 81003; 85025; 99284; G0378; J1100; J1200; J2765; J3475

== ENCOUNTER 2019-06-15 11:36 | Outpatient (CLI) | payer OTHER, MEDICAID, SELFPAY ==
[2019-06-15 13:03] LABS: Anion Gap 8.4 mmol/L (3-11); BUN 14 mg/dL (7-18); CO2 26.6 mmol/L (21.0-32.0); CREATININE 0.79 mg/dL (0.55-1.02); Calcium 9.4 mg/dL (8.5-10.1); Chloride 102 mmol/L (98-107); Glucose 81 mg/dL (70-100); Potassium 4.6 mmol/L (3.5-5.1); Sodium 137 mmol/L (136-145)
== END 2019-06-15 11:56 ==
PROVIDERS: PCP Nurse Practitioner Family; Visit Provider Obstetrics & Gynecology
DX: E87.6 Hypokalemia (principal); R20.2 Paresthesia of skin
CPT/HCPCS: 36415; 80048

== ENCOUNTER 2020-10-31 13:31 | Outpatient (REF) | payer BC, SELFPAY ==
[2020-10-31 18:26] LABS: HCT 40.5 % (36.0-46.0); HGB 13.3 g/dL (11.2-15.7); MCH 31.2 pg (27.0-33.0); MCHC 32.8 % (32.0-36.0); MCV 95.1 fL (80-95); MPV 10.4 fL (8.0-11.0); Platelet Count 334 10^3/uL (130-400); RBC 4.26 10^6/uL (3.93-5.22); RDW 12.7 % (11.7-14.6); RDW-SD 44.4 fL; WBC 8.83 10^3/uL (4.4-10.8)
[2020-10-31 18:51] LABS: ALT 21 U/L (14-59); AST 9 U/L (15-37); Albumin 4.1 g/dL (3.4-5.0); Alkaline Phosphatase 67 U/L (46-116); Amylase 42 U/L (25-115); Anion Gap 6.7 mmol/L (3-11); BUN 12 mg/dL (7-18); Bilirubin, Total 0.3 mg/dL (0.2-1.0); CO2 27.3 mmol/L (21.0-32.0); CREATININE 0.65 mg/dL (0.55-1.02); Calcium 9.3 mg/dL (8.5-10.1); Chloride 105 mmol/L (98-107); Glucose 92 mg/dL (74-106); Lipase 100 U/L (73-393); Potassium 4.1 mmol/L (3.5-5.1); Sodium 139 mmol/L (136-145); Total Protein 7.1 g/dL (6.4-8.2)
== END 2020-10-31 13:51 ==
LOC: NCHCN 13:31
PROVIDERS: PCP Nurse Practitioner Family; Visit Provider Nurse Practitioner Family
DX: R94.5 Abnormal results of liver function studies (principal); Z86.39 Personal history of other endocrine, nutritional and metabolic disease
CPT/HCPCS: 80053; 83690; 85027; 82150; 87086

== ENCOUNTER 2020-12-11 14:31 | Outpatient (CLI) | payer BC, SELFPAY ==
--- NOTE | 2020-12-11 14:00 | DI.RAD_ITS ---
EXAM: XR WRIST RT COMPL NAVICULAR CLINICAL HISTORY: ganglion. TECHNIQUE: 2D digital imaging was performed. COMPARISON: No exams were available for comparison FINDINGS: BONES: No acute fracture is present. No bony destructive lesion is seen. JOINTS: The carpal bones are normally aligned. SOFT TISSUE: Normal. IMPRESSION: Unremarkable radiographs of the right wrist. DATA REPOSITORY: RADIATION DOSE DELIVERED:
--- NOTE | 2021-01-01 09:12 | PDOC.ANES ---
Date of service: 01/01/21 Time of Service: 09:12 Anesthesia Note Report Anesthesia Note: Called Catrina to chat in regards to her anxiety about her upcoming hernia repair. She is very concerned about her having an anaphylactic reaction while she is under anesthesia. We went over her previous anesthesia events. It is unclear what she may have had a reaction to during her previous anesthesia event. There is no mention of signs or symptoms of anaphylaxis, and no epinephrine was given. She believes that her reaction was to morphine, but I am unable to tell if she was given it IV postoperatively. We discussed anaphylactic reactions while under anesthesia and how we identify it. At the end of our conversation she is still nervous about her surgery but a little more at ease.
== END 2020-12-11 14:32 | disposition home or self-care (01) ==
LOC: DIORS 14:32
PROVIDERS: PCP Nurse Practitioner Family; Referring Provider Nurse Practitioner Family; Visit Provider Physician Assistant Surgical
DX: M67.431 Ganglion, right wrist (principal)
CPT/HCPCS: 73110

== ENCOUNTER 2021-08-30 11:49 | Outpatient (REF) | payer BC, SELFPAY ==
--- NOTE | 2021-08-30 10:45 | PAPFT_PTH ---
PATIENT: Catrina Flaherty LOC: [facility] U#:[id number] AGE/SX: 30/F ROOM: RE08/30/[address]: SAMMIE Caldwell : 1990 BED: DIS: 08/30/2021 SPEC #: [id number] RECD: 08/30/21 12:38 STATUS: SUKHDEV REQ #: [id number] NATE: 08/30/21 10:[address]: Virginia Hylton DEPT: [facility] Cytology RECD BY: Sparkle Trevizo ENTERED: 08/30/21 12:38 SP TYPE: PAPFT OTHR DR: Genet Sorensen Tissues: 1 - CX/ENDOCX FOR PAP SMEARS Procedures: PAP THIN PREP/[facility] Screening HPV DNA PROBE Comments: [id number]
== END 2021-08-30 11:50 | disposition home or self-care (01) ==
LOC: LBN 11:49
PROVIDERS: PCP Nurse Practitioner Family; Visit Provider Nurse Practitioner Family
DX: Z12.4 Encounter for screening for malignant neoplasm of cervix (principal); Z11.51 Encounter for screening for human papillomavirus (HPV); R87.820 Cervical low risk human papillomavirus (HPV) DNA test positive
CPT/HCPCS: 88142; 87624